=== PATIENT | female | born 1970 | race Caucasian/White ===

== ENCOUNTER → 2017-03-07 | Outpatient (CLI) | payer BC ==
--- NOTE | 2017-03-07 11:06 | KCIC ---
EXAM Bilateral digital screening mammogram. HISTORY 66-year-old female presents for screening mammography. TECHNIQUE Full field digital craniocaudal and mediolateral oblique standard and breast implant displaced views of both breasts were obtained. Computer-aided detection is applied. COMPARISON 03/12/2016 FINDINGS Breast parenchymal composition: Level B - Scattered fibroglandular densities. There is no new suspicious mass, calcification or architectural distortion within either breast. There are unremarkable breast implants. IMPRESSION BI-RADS Category 2: Benign findings. Annual mammography is recommended. This study was interpreted with the benefit of Computerized Aided Detection (CAD). Mammography is not 100% sensitive in detecting breast cancer. Therefore, a self breast exam and a clinical breast exam are very important. A negative mammogram does not negate a clinically suspicious finding and should not result in a delay in biopsying a clinically suspicious abnormality. The patient information was entered into a reminder system with a target date for her next mammogram in year. Electronically signed by: Alexia Zapien (March 07, 2017 11:05:03)
== END | disposition home or self-care (01) ==
LOC: KCIC MAMMO 10:14
PROVIDERS: ATTEND Plastic Surgery
DX: Z12.31 Encounter for screening mammogram for malignant neoplasm of breast (principal)
CPT/HCPCS: G0202; 77067